=== PATIENT | male | born 1960 | race Caucasian/White ===

== ENCOUNTER 2021-05-01 05:40 | Emergency (ER) | payer BC ==
[~2021-05-01] VITALS: Ht 172.7 cm; Wt 89.5 kg
[2021-05-01 05:45] VITALS: BP 170/102
== END 2021-05-01 10:30 | disposition left against medical advice (07) ==
LOC: ER 05:41
DX: R10.31 Right lower quadrant pain (principal); Z53.21 Procedure and treatment not carried out due to patient leaving prior to being seen by health care provider